=== PATIENT | female | born 1995 | race Caucasian/White ===

== ENCOUNTER 2016-11-02 18:56 | Emergency (ER) | payer OTHER ==
[2016-11-02 21:29] LABS: HEMOGLOBIN 12.3 gm/dl (12.3-15.3); RED BLOOD COUNT 4.14 M/UL (4.00-5.10); WHITE BLOOD COUNT 11.4 K/UL (4.5-11.0)
[2016-11-02 21:45] LABS: BUN/CREATININE RATIO 17 (0-10)
== END 2016-11-02 23:53 | disposition home or self-care (01) ==
LOC: ER1 18:56
PROVIDERS: Physician Assistant Medical
DX: N39.0 Urinary tract infection, site not specified (principal); K59.00 Constipation, unspecified; F17.210 Nicotine dependence, cigarettes, uncomplicated
CPT/HCPCS: 36415; 76817; 80053; 81001; 83690; 84702; 84703; 85025; 99284